=== PATIENT | male | born 1955 | race African-American/Black ===

== ENCOUNTER → 2017-10-06 | Outpatient (CLI) | payer OTHER ==
[~2017-10-06] MED LIST: AMLO10TA2 PO; ASPI81TA23 PO; CYCL10TA PO; HYDR-3516 PO; LISI10TA PO; TRAM50TA PO; VITA1000 PO
== END ==
LOC: HORT 12:43
PROVIDERS: ATTEND Orthopaedic Surgery Sports Medicine
DX: Z46.89 Encounter for fitting and adjustment of other specified devices (principal)
CPT/HCPCS: L0627